=== PATIENT | female | born 1970 | race Caucasian/White ===

== ENCOUNTER → 2017-02-03 | Outpatient (CLI) | payer BC ==
[~2017-02-03] MED LIST: FLOMAX0.4 M1 PO; NORCO 7.5/325 T1 TAB PO; PERCOCET 51 UDTAB 5/ PO; PHENERGAN PO; VICODIN 5/1 TAB 5/50
--- NOTE | ~2017-02-03 | MY29 ---
[facility] A Service of [facility] RADIOLOGY TEXT RESULTS PATIENT: VERONICA PLAZA LOCATION: [facility] : 70 UNIT #: [id number] AGE: [address]: Agusto Sam SEX: F ORDER DR: [id number] [facility] [address] [place], [place] [address] [id number] O MR#: [id number] Acc #: [id number] NAME: VERONICA PLAZA : 1970 SEX: F STUDY DATE/TIME: 02/03/2017 10:27 UNIT: [facility] ROOM: STUDY DESCRIPTION: MY KEIRA SCREENING W/ CAD BILAT Attending Physician: Agusto Sam A.P.R.N. Ordering Physician: Agusto Sam A.P.R.N. Primary Care Physician: Agusto Sam A.P.R.N. MEDICAL IMAGING REPORT This report is preliminary unless electronic signature is present EXAM Digital screening mammogram 02/03/2017. [facility] HISTORY 46-year-old woman positive family history, grandmother. Prior reduction mammoplasty. Annual screening. COMPARISON: Mammograms date to 01/28/2010 with most recent screening comparison 01/31/2016. FINDINGS Digital imaging of each breast was completed utilizing screening protocol. Review includes FDA-approved CAD device. Breast parenchyma is partially fatty replaced. Scattered fibroglandular opacities are stable bilaterally. There is no interval occurring breast mass. There are no suspicious microcalcifications and no architectural deformity. IMPRESSION Negative mammogram. Annual screening recommended. Patients over the age of 40 are entered into a reminder system with target due date for the next mammogram. A result letter will also be sent to the patient. BIRADS: 1 - negative Dictated by... Nic Lema M.D. THIS IS AN ELECTRONICALLY VERIFIED REPORT [facility] A Service [facility] RADIOLOGY TEXT RESULTS PATIENT: VERONICA PLAZA [id number] 70 UNIT #: [id number] AGE: [address]: Agusto Sam SEX: F ORDER DR: Nic Lema M.D. at 02/03/2017 2:38 PM Bartolo TD: 02/03/2017 12:52 JOB #: [id number] MEDICAL IMAGING REPORT Page 1 of 1 COPY
== END | disposition home or self-care (01) ==
LOC: CWCC 09:57
DX: Z12.31 Encounter for screening mammogram for malignant neoplasm of breast (principal); Z80.3 Family history of malignant neoplasm of breast
CPT/HCPCS: G0202